=== PATIENT | male | born 1965 | race Caucasian/White ===

== ENCOUNTER 2023-08-01 11:15 | Emergency (ER) | payer OTHER, SELFPAY ==
--- NOTE | ~2023-08-01 | CT_ITS ---
EXAMINATION: CT HEAD WITHOUT CONTRAST CLINICAL INFORMATION: Trauma COMPARISON: None available. TECHNIQUE: Contiguous axial imaging was performed from the skull base to vertex without intravenous administration of contrast. This CT examination was performed using dose optimization techniques as appropriate, variously including the following: *Automated exposure control *Adjustment of mA and/or kV according to patient size (this includes techniques or standardized protocols for targeted exams where dose is matched to indication/reason for exam; i.e. extremities or head) *Use of iterative reconstruction technique DLP: 848 mGy-cm FINDINGS: The ventricles and sulci are normal in size and configuration. No acute hemorrhage, mass effect or shift is evident. Huynh-white differentiation is maintained. In the posterior fossa, the brainstem, cerebellum and fourth ventricle image normally. The orbits and calvarium are intact. Mucosal thickening is evident within bilateral maxillary, ethmoid, frontal and sphenoid sinuses. The mastoid air cells are well pneumatized and clear. CT/CT head/brain wo IV con IMPRESSION: 1. Unremarkable noncontrast brain CT. No acute hemorrhage, mass effect or shift. 2. Mild pansinusitis
[2023-08-01 11:41] VITALS: BP 206/124; PULSE 75; RESP 19; TEMP 36.6; O2SAT 98; BMI 37.2
--- NOTE | 2023-08-01 11:46 | ED_ITS ---
HPI - General Adult General Chief complaint: Wound/Laceration Stated complaint: Facial Lac Work Injury 08/01/23 Time Seen by Provider: 08/01/23 11:52 Source: patient Limitations: no limitations History of Present Illness HPI narrative: 58 year old male with history of HTN, untreated, presents to ER for evaluation of forehead laceration sustained this morning after slipping off ramp that was 6 inches off the ground and falling from standing position. Denies loss of consciousness. Denies headache, confusion, dizziness, change in vision, pain aside from area of injury, nausea, vomiting. Denies any medications [employer]. Denies taking blood thinners. Needs updated tetanus vaccine. complaint: forehead laceration Onset (ago): hour(s) (4) Location: face Radiation: non-radiation Severity: mild Pain Consistency: constant Associated symptoms: denies other symptoms Treatments prior to arrival: none Related Data Allergies Allergy/AdvReac Type Severity Reaction Status Date / Time No Known Allergies Allergy Verified 08/01/23 11:39 Review of Systems Review of Systems: Yes all other systems are reviewed and are negative [facility] Social History Social History Advance Directives: No Advance Directives Information Provided: Yes Physical Exam ED Vital Signs: Vital Signs - 24 hr 08/01/23 11:41 08/01/23 12:21 Temperature 98 F Pulse Rate 75 64 Respiratory Rate 19 18 Blood Pressure 206/124 H 174/95 H Pulse Oximetry 98 98 Oxygen Delivery Method Room Air Room Air BMI result Body Mass Index 37.2 Const General: cooperative, healthy appearing, comfortable and no acute distress Nutritional Appearance: overweight Orientation/consciousness: patient oriented x3 Limitations: no limitations [facility] Head: Yes normal to inspection, Yes No palpable skull fracture present, Yes normocephalic, No Freire's sign, No contusion and No raccoon eyes Ears: hearing grossly normal bilaterally General nose exam: Normal external nose present Face and sinus: No normal facial exam, Yes ecchymosis (Ecchymosis to left-side advent, zygomatic arch, periorbital.), Yes laceration (7 cm laceration to left frontal skull, just above eyebrow.), Yes Facial tenderness on exam of face and sinuses and Yes other (2 minor lacerations to left lateral zygomatic arch, bleed controlled.) Eyes General: appearance abnormal, both eyes (Ecchymosis to periorbital tissue.) Alignment and Position: alignment normal Pupils: Equal, round and reactive pupils present EOM: EOMs intact bilaterally Direct Ophthalmoscopy: normal light reflex and no photophobia Neuro General: patient oriented x3 Cranial nerves: Yes CN's II-XII intact bilaterally, Yes Facial sensation inta ct/muscles of mastication intact, Yes Equal, round and reactive pupils present, Yes Normal accommodation reflex present, Yes Bilaterally intact EOM present, Yes Nystagmus not present, Yes Midline tongue present and Yes Ability to bilaterally elevate shoulders present Cognition (Neuro): normal cognition Motor exam (neuro): 5/5 motor strength present throughout Course Course Course Narrative: RME- patient reports he slipped and fell off of his work truck today. He was only standing about 6 in off the ground, but fell from a standing position. He struck the left forehead just above his eyebrow and sustained a large laceration, approximately 7 cm. Bleeding controlled. Plan for CT scan of the brain and tetanus update. The patient will require closure. He is not anticoagulated, there was no loss of consciousness. Medications Administered Discontinued Medications Generic Name Dose Route Start Last Admin Trade Name Freq PRN Reason Stop Dose Admin Diphtheria/Tetanus/Acell Pertussis 0.5 ml 08/01/23 11:45 08/01/23 11:57 Diphth,Pertus(Acell),Tet Adult 0.5 Ml Syringe IM 08/01/23 11:46 0.5 ml .ONCE ONE Administration Ibuprofen 600 mg 08/01/23 13:39 08/01/23 13:44 Ibuprofen 600 Mg Tablet PO 08/01/23 13:40 600 mg ONCE ONE Administration Lidocaine HCl 5 ml 08/01/23 12:22 08/01/23 12:34 Lidocaine Hcl 1 % Mpf 5 Ml Vial SUBCUT 08/01/23 12:23 5 ml ONCE ONE Administration Lidocaine HCl 5 ml 08/01/23 12:22 08/01/23 12:34 Lidocaine Hcl 1 % Mpf 5 Ml Vial SUBCUT 08/01/23 12:23 5 ml ONCE ONE Administration Procedures Laceration Laceration 1: Site: face Side (If applicable): left Size (cm): 6 (6 cm in length, 1 cm in width) Description: linear Depth: involves muscle layer Local Anesthetic: lidocaine 1% Amount of anesthesia used (mL): 8 Pre-repair: wound explored and irrigated extensively Skin layer closed with: vicryl Size (cm): 6-0 Number of sutures: 14 Technique: simple, interrupted Subcutaneous layer closed with: chromic gut Size: 3-0 Number of sutures: 3 Technique: simple, interrupted Medical Decision Making Medical Decision Making MDM Narrative: 58 year old male with history of HTN presents to ER for evaluation of forehead laceration sustained this morning after slipping off ramp that was 6 inches off the ground, and falling from standing position. Denies loss of consciousness, anticoagulation. PE reveals multiple small lacerations to left side of face near zygomatic arch, as well as one larger, 6x1 cm, linear laceration just above left eyebrow. Neurologically intact. No photophobia or pain with EOMs. Plan: Head/brain CT, suture laceration, Tdap immunization. Head/brain CT unremarkable for any acute hemorrhage or fracture. Laceration closed with 3 absorbable subcutaneous sutures, as well as 14 nonabsorbable epidermal sutures. Wound thoroughly cleaned and wrapped with gauze. AAOx3, neuro is nonfocal. stable for d/c home, given head injury precautions Differential Diagnosis Differential Diagnoses: The differential diagnosis associated with the presentation includes Skin laceration, orbital fracture, frontal bone fracture, epidural hematoma, subdural hematoma, ICH Admission/Observation Consideration of admission/observation: Escalation of care including admission/observation considered Independent Interpretation I performed an independent interpretation of an: CT Scan Interpretation: I have reviewed the patient's CT scan of head/brain and I am in agreement with the radiologist's impression, no bleed or edema Radiology Impression Discussion of test interpretation with radiology: I have reviewed the radiologist's reading. Radiologist Impression: EXAMINATION: CT HEAD WITHOUT CONTRAST CLINICAL INFORMATION: Trauma COMPARISON: None available. TECHNIQUE: Contiguous axial imaging was performed from the skull base to vertex without intravenous administration of contrast. This CT examination was performed using dose optimization techniques as appropriate, variously including the following: *Automated exposure control *Adjustment of mA and/or kV according to patient size (this includes techniques or standardized protocols for targeted exams where dose is matched to indication/reason for exam; i.e. extremities or head) *Use of iterative reconstruction technique DLP: 848 mGy-cm FINDINGS: The ventricles and sulci are normal in size and configuration. No acute hemorrhage, mass effect or shift is evident. Huynh-white differentiation is maintained. In the posterior fossa, the brainstem, cerebellum and fourth ventricle image normally. The orbits and calvarium are intact. Mucosal thickening is evident within bilateral maxillary, ethmoid, frontal and sphenoid sinuses. The mastoid air cells are well pneumatized and clear. CT/CT head/brain wo IV con IMPRESSION: 1. Unremarkable noncontrast brain CT. No acute hemorrhage, mass effect or shift. 2. Mild pansinusitis Prescription Management I considered prescription management with: Pain Medication Chronic Conditions Patient?s care impacted by: Hypertension Critical Care Time Critical Care Time Critical Care Time: No Discharge Plan Discharge Clinical Impression: Complex laceration of forehead, Black eye of left side Patient Disposition: Home, Self-Care Instructions: Laceration (DC), Black Eye (ED) Additional Instructions: Your CT scan today was normal. 14 stitches were used to close your wound today You will need your stitches out in 7 days. See you doctor for this or come back to the ER and we will remove them. Do not get wet for 24 hours, after that you can briefly wash with soap and water then pat dry. Keep wound clean and covered when out, allow open to air when you are home for a few hours per day. Use ice to the eye to help with swelling and pain. Follow up with your doctor. If you develop signs of infection including increased pain, swelling, redness or drainage of pus come back to the ER for further evaluation. Interventions: ED Discharge Assessment Last Done: 08/01/23 14:11 Discharge Date/Time: 08/01/23 14:15
[2023-08-01] MEDS: Diphth,Pertus(ACell),Tet Adult 0.5 ML SYRINGE IM (11:57)
[2023-08-01 12:21] VITALS: BP 174/95; PULSE 64; RESP 18; O2SAT 98
[2023-08-01] MEDS: Lidocaine HCl 1 % MPF 5 ML VIAL SUBCUT ×2 (12:34)
[2023-08-01] MEDS: Ibuprofen 600 MG TABLET PO (13:44)
== END 2023-08-01 14:15 | disposition home or self-care (01) ==
PROVIDERS: Emergency Provider Emergency Medicine Emergency Medical Services
DX: S01.81XA Laceration without foreign body of other part of head, initial encounter (principal); S00.81XA Abrasion of other part of head, initial encounter; R51.9 Headache, unspecified; W01.10XA Fall on same level from slipping, tripping and stumbling with subsequent striking against unspecified object, initial encounter; Y93.9 Activity, unspecified; Y92.9 Unspecified place or not applicable; Y99.9 Unspecified external cause status; Z79.899 Other long term (current) drug therapy; Z23 Encounter for immunization
CPT/HCPCS: 12053; 70450; 90471; 90715; 99284